=== PATIENT | female | born 1995 | race African-American/Black ===

== ENCOUNTER 2021-06-23 16:13 | Emergency (ER) | payer OTHER ==
[~2021-06-23] VITALS: Ht 170.2 cm; Wt 86.4 kg
[2021-06-23] MEDS ORDERED: MULT-1291 PO (16:31)
[2021-06-23] MEDS ORDERED: HYDROCODONE/ACETAMINOPHEN 5-325 MG TABLET PO ONE (17:30)
[2021-06-23] MEDS ORDERED: BACITRACIN 0.9 GM PACKET OINTMENT TP ONE (17:30)
[2021-06-23 18:52] VITALS: BP 109/63
== END 2021-06-23 18:53 | disposition home or self-care (01) ==
LOC: EMS 16:17
DX: S20.211A Contusion of right front wall of thorax, initial encounter (principal); S20.212A Contusion of left front wall of thorax, initial encounter; W18.39XA Other fall on same level, initial encounter; Y93.89 Activity, other specified; Y92.89 Other specified places as the place of occurrence of the external cause; Y99.8 Other external cause status
CPT/HCPCS: 71046; 99283